=== PATIENT | male | born 1965 | race Caucasian/White ===

== ENCOUNTER 2016-06-24 06:12 | Inpatient (IN) | payer MEDICAID ==
[~2016-06-24] VITALS: Ht 177.8 cm; Wt 68.6 kg
[~2016-06-24 06:12] MED LIST: CYCL1TAB29 PO; GABA400C5 PO; HYDR-3533 PO; LISI10TA3 PO; NICO14DI T-DERMAL
[2016-06-24] MEDS ORDERED: THROMBIN (TOPICAL) 5,000 UNIT VIAL ONE (06:46)
[2016-06-24] MEDS ORDERED: GELFOAM SIZE 100 ONE (06:46)
[2016-06-24] MEDS ORDERED: LIDOCAINE 1%/EPINEPHrine 1:100,000 SOLN 30 ML VIAL ONE (06:46)
[2016-06-24] MEDS ORDERED: GENTAMICIN SULFATE 80 MG/2 ML VIAL ONE (06:48)
[2016-06-24] MEDS ORDERED: BUPR150CR PO (07:12)
[2016-06-24] MEDS ORDERED: CLINDAMYCIN PHOS 600 MG/4 ML VIAL ONE (07:14)
[2016-06-24] MEDS ORDERED: SODIUM CHLORIDE 0.9% INJ 100 ML ONE (07:14)
[2016-06-24] MEDS ORDERED: LACTATED RINGER'S 1000 ML INJ 1,000 ML ONE (07:14)
[2016-06-24 07:15] VITALS: BP 159/96; PULSE 102; RESP 18; TEMP 99.5; O2SAT 98
[2016-06-24] MEDS ORDERED: FAMOTIDINE 20 MG/2 ML VIAL ONE (08:16)
[2016-06-24] MEDS ORDERED: MIDAZOLAM HCL 2 MG/2 ML VIAL ONE ×2 (08:16→13:37)
[2016-06-24] MEDS ORDERED: SUFentanil INJ 250 MCG/5 ML AMP ONE (08:21)
[2016-06-24] MEDS ORDERED: PROPOFOL 200 MG/20 ML AMP IV ONE (08:49)
[2016-06-24] MEDS ORDERED: ONDANSETRON HCL 4 MG/2 ML VIAL IV PUSH ONE (08:49)
[2016-06-24] MEDS ORDERED: LACTATED RINGER'S 1000 ML INJ 2,000 ML IV ONE (08:49)
[2016-06-24] MEDS ORDERED: PHENYLEPH/NS 1000 MCG/10 ML SYR IV ONE (08:49)
[2016-06-24] MEDS ORDERED: DO NOT ADM ANY ANTICOAGULANT DRUGS XX PRN (13:31)
[2016-06-24] MEDS ORDERED: *morphine SULFATE 8 MG/ML PERIprocedure ONLY ONE ×3 (13:35→15:45)
[2016-06-24] MEDS ORDERED: *LABETALOL HCL 100 MG/20 ML VIAL PERIprocedural Use ONLY ONE (13:35)
--- NOTE | 2016-06-24 13:53 | RADRPT ---
EXAM DATE/TIME: 06/24/2016 10:30 [facility] COMPARISON: No previous studies available for comparison. INDICATIONS : Herniated disk, stenosis, anterior cervical fusion. MEDICAL HISTORY : None. SURGICAL HISTORY : None. ENCOUNTER: Initial ACUITY: 1 day PAIN SCORE: 0/10 LOCATION: Cervical spine FINDINGS: Plate with screws is seen bridging the C4-C6. Alignment is anatomic. CONCLUSION: Anatomic alignment. Brannon Martinez MD FACR on June 24, 2016 at 13:32 Board Certified Radiologist. This report was verified electronically.
--- NOTE | 2016-06-24 14:22 | PD.OP ---
Operative Report Date of Surgery: Jun 24, 2016 Preoperative Diagnosis: (1) Cervical spinal stenosis (2) Cervical disc disease with myelopathy Cervical spondylosis and degenerative disc disease Cervical stenosis severe at C5 6 and moderately severe C67 levels Severe cervical myelopathy Postoperative Diagnosis: (1) Cervical spinal stenosis (2) Cervical disc disease with myelopathy Cervical spondylosis and degenerative disc disease Cervical stenosis severe at C5 6 and moderately severe C67 levels Severe cervical myelopathy Procedure: C5 6 and C6 7 anterior cervical discectomy, bilateral foraminotomies, resection posterior aspect as complex-microtechnique C5 6 and C6 7 anterior cervical interbody fusion, composite allograft bone C5-C7 anterior cervical instrumentation Anesthesia: Gen. endotracheal Surgeon: Tremaine Ugarte Video Manager(s): Mehul Foley Operation and Findings: Findings: Severe C5 6 and moderate C6 7 posterior osteophytic disc complex. Severe calcification of the annulus and posterior longitudinal ligament at the C5 6 level with significant erosion of the dura at the central to left C 5 6 level. Severe adhesions of the posterior longitudinal ligament and annular complex to the dura at the left C5 6 level. Procedure in detail: The patient was brought into the operating room and positioned in supine position on the 3080 table with the head and neck in neutral position. Wasserman catheter was placed. Lines were established by Anesthesia. Gen. endotracheal anesthesia was induced without difficulty, taking care not to significantly flex or extend the patient's neck during intubation and positioning. Leads for intraoperative neuro monitoring were placed and a baseline study obtained. All extremities were appropriately padded. The neck and upper chest were shaved with clippers and sterilely prepped and draped. Appropriate time-out procedure was performed with all personnel present and in agreement 1% Xylocaine with epinephrine was used for local infiltration over the incision site which was made transversely at the left C6 level and carried sharply down through the platysma muscle. The exposure was continued medial to the sternocleidomastoid muscle and carotid artery, and lateral to the trachea and esophagus. The prevertebral fascia was elevated away from the anterior longitudinal ligament with a Kitner sponge. The longus coli muscle on each side was elevated with the [place] elevator. The self-retaining retractor was placed with the blades beneath the longus coli muscle on each side. The appropriate levels were confirmed with intraoperative C-arm and preoperative imaging studies. The microscope was brought into place and used for the remainder of the procedure including the closure. The 14 mm distraction pins were used as needed for gentle distraction during the procedure. The procedure was performed sequentially at the C5 6 followed by the C6 7 levels. At each level the anterior osteophyte was resected with the Leksell rongeur. The disc and annulus was incised with a 15 blade knife and discectomy performed with pituitary biopsy forceps and straight and angled curettes. The TPS drill with the 5 mm barrel bur was used to decorticate the endplates and removed the majority of the osteophyte along the anterior spinal canal as well as the right and left uncovertebral joint. The posterior vertebral margins of at least 5 mm above and below the interspace at each level were resected with the TPS drill with a 5 mm barrel bur followed by the 4 mm amaya bur. The thin ligament dissector was used to free up the posterior annulus and ligament from the vertebral body margin. The remainder of the resection of the posterior annulus and ligament as well as the posterior osteophyte and bilateral uncovertebral joint was performed with the 2 and 3 mm thin footplate Kerrison rongeurs. At the C5 6 level, there was severe calcification of the annulus and posterior longitudinal ligament. This tissue was very adherent to the thecal sac at the central to left C5 6 level, with an area of erosion into the dura. Extreme care was taken to lift this calcified tissue away from the anterior aspect of the spinal cord. No spinal fluid leakage was encountered. Despite a wide decompression of the anterior canal and bilateral neural foramen at the C5 6 level, the cord still appeared adherent to or immediately beneath the dura at the C5 6 level. The small defect in the dura was covered with a thin piece of Gelfoam and thrombin. No cerebrospinal fluid leakage was encountered. At the C6 7 level, the posterior osseous disc complex was also very extensive, but there was no adhesion noted and no calcification of the posterior longitudinal ligament. Significant posterior osteophyte was encountered and extensively removed. The posterior vertebral bodies were undercut with the Kerrison rongeur and the TPS drill with the 4 mm amaya bur as needed to fully decompress the anterior spinal canal. The appropriate size V G2 bone graft was then placed at each level with a good fit of the graft. The blunt nerve hook was used to probe beneath the bone graft to ensure that there was no impingement on the thecal sac or exiting nerve roots. The appropriate size Precision anterior cervical plate was then chosen and the bone screws were placed with the 14 mm fixed screws at the caudal most level and the 14 mm variable screws at the cephalad level of the decompression. The screws were firmly secured and the locking cams engaged. The entire construct was checked with intraoperative C-arm and felt to be satisfactory. The 10 Polish drain was brought out through a small incision in the left lower neck and secured to the skin with nylon suture and attached to sterile suction. The closure was performed with 3-0 Vicryl running for the platysma and interrupted for the subcutaneous closure, with 4-0 Vicryl running for the subcuticular closure. A dressing of sterile Mastisol, Steri-Strips, and Primapore dressing was placed. The patient was placed into a cervical collar, and taken to recovery room in stable condition. All counts were correct at the end of the case. Estimated blood loss was 100 cc No specimen was sent to pathology. Intraoperative neuro monitoring during the procedure at baseline revealed no motor responses bilateral. During the procedure, left upper extremity SSEP was diminished greater than 50% with increased latency, but by the end of procedure have returned to baseline or better. Right upper extremity SSEP remained stable during the procedure. At the end of procedure, motor responses were present in the left proximal upper extremity and left foot as well as some right biceps, all improved versus baseline. Tremaine Ugarte MD Jun 24, 2016 14:22
[2016-06-24] MEDS ORDERED: SODIUM CHLORIDE 0.9% FLUSH 5 ML FLUSH IVF PRN (14:30)
[2016-06-24] MEDS ORDERED: NALOXONE HCL 0.4 MG/ML AMP IV PRN (14:30)
[2016-06-24] MEDS ORDERED: ONDANSETRON HCL 4 MG/2 ML VIAL IV PRN (14:30)
[2016-06-24] MEDS ORDERED: PROMETHAZINE INJ 25 MG/ML VIAL IM PRN (14:30)
[2016-06-24] MEDS ORDERED: HYDROmorphone HCL PF 1 MG/ML VIAL IV PRN (14:30)
[2016-06-24] MEDS ORDERED: ACETAMINOPHEN/HYDROcodone 325 MG/5 MG TAB PO PRN (14:30)
[2016-06-24] MEDS: D5-1/2 NS + KCL 20 MEQ INJ 1,000 ML IV SCH (15:10)
[2016-06-24] MEDS ORDERED: *HYDROmorphone PF 1 MG VIAL PERIprocedural Use ONLY ONE (15:52)
[2016-06-24] MEDS: HYDROmorphone HCL PF 1 MG/ML VIAL IV PRN ×2 (16:55→20:44)
[2016-06-24 17:10] VITALS: BP 171/96; PULSE 102; RESP 20; TEMP 99.2; O2SAT 99
[2016-06-24] MEDS: GABAPENTIN 300 MG CAP PO SCH (18:00)
[2016-06-24] MEDS: CYCLOBENZAPRINE HCL 10 MG TAB PO PRN (20:57)
[2016-06-24] MEDS: LISINOPRIL 10 MG TAB PO SCH (20:58)
[2016-06-24] MEDS: DOCUSATE SODIUM 100 MG CAP PO SCH (20:58)
[2016-06-24] MEDS: SODIUM CHLORIDE 0.9% FLUSH 5 ML FLUSH IVF SCH (20:58)
[2016-06-24 21:04] VITALS: BP 158/93; PULSE 102; RESP 24; TEMP 98.2; O2SAT 100
[2016-06-25] VITALS (7 sets, daily range): BP systolic 125–173; BP diastolic 58–98; PULSE 62–95; RESP 18–22; TEMP 96.7–99.3; O2SAT 97–100
[2016-06-25] MEDS: HYDROmorphone HCL PF 1 MG/ML VIAL IV PRN ×7 (00:09→21:26)
[2016-06-25] MEDS: oxyCODONE/ACETAMINOPHEN 10 MG/325 MG TAB PO PRN ×4 (00:13→19:59)
[2016-06-25] MEDS: D5-1/2 NS + KCL 20 MEQ INJ 1,000 ML IV SCH ×2 (00:14→12:00)
[2016-06-25 08:47] LABS: AUTOMATED NEUTROPHIL # 6.8 TH/MM3 (1.8-7.7); BASOPHIL % 0.5 % (0.0-2.0); EOSINOPHIL % 0.4 % (0.0-4.0); HEMATOCRIT 37.7 % (39.0-51.0); HEMO FLAGS DIFF FINAL; LYMPH % 19.6 % (9.0-44.0); LYMPHOCYTE # 1.9 TH/MM3 (1.0-4.8); MEAN CELL VOLUME 94.2 FL (80.0-100.0); MEAN CORPUSCULAR HEMOGLOBIN 32.5 PG (27.0-34.0); MEAN CORPUSCULAR HGB CONC 34.5 % (32.0-36.0); MONO % 11.5 % (0.0-8.0); PLATELET COUNT 244 TH/MM3 (150-450); RED CELL DISTRIBUTION WIDTH 13.2 % (11.6-17.2); WHITE BLOOD COUNT 9.9 TH/MM3 (4.0-11.0)
[2016-06-25] MEDS: DOCUSATE SODIUM 100 MG CAP PO SCH ×2 (08:54→21:15)
[2016-06-25] MEDS: buPROPion HCL 150 MG SUSTAINED RELEASE TAB PO SCH (08:54)
[2016-06-25] MEDS: GABAPENTIN 300 MG CAP PO SCH ×3 (08:55→18:00)
[2016-06-25] MEDS: CYCLOBENZAPRINE HCL 10 MG TAB PO PRN (08:55)
[2016-06-25] MEDS: PANTOPRAZOLE SOD 40 MG DELAYED RELEASE TAB PO SCH (08:55)
[2016-06-25] MEDS ORDERED: NICOTINE 14 MG/24 HR PATCH T-DERMAL SCH (09:00)
[2016-06-25] MEDS: REMOVE OLD NICOTINE PATCH TD SCH (09:00)
[2016-06-25] MEDS: SODIUM CHLORIDE 0.9% FLUSH 5 ML FLUSH IVF SCH ×2 (09:02→21:16)
[2016-06-25 09:10] LABS: BICARBONATE 26.4 MEQ/L (21.0-32.0); POTASSIUM 3.7 MEQ/L (3.5-5.1)
[2016-06-25] MEDS ORDERED: INFLUENZA VIRUS VACCINE (QUADRIVALENT) 0.5 ML SYR IM ONE (10:00)
[2016-06-25] MEDS ORDERED: PNEUMOCOCCAL POLYVALENT INJ 25 MCG/0.5 ML SYR IM ONE (10:00)
[2016-06-25] MEDS ORDERED: PHENOL 1.4% SOLN 180 ML BTL PO PRN (13:15)
[2016-06-25] MEDS: BENZOCAINE 6 MG/MENTHOL 10 MG LOZENGE BUCCAL PRN ×2 (15:01→20:03)
--- NOTE | 2016-06-25 20:00 | HHI.NSPN ---
History Chief Complaint: throat pain, neck pain Interval History 50-year-old male with severe cervical stenosis, cervical myelopathy, significant increased signal intensity within the cord on preoperative MRI. 06/24/16: C5 6 and C6 7 ACDF 06/25/16: Moderate drain output. Significant throat, neck pain. Clear liquids per speech therapy. Gait remains unsteady, unchanged versus preop System Review Comments No complaint of any radiating pain in the upper or lower extremities. No complaint of any new weakness or numbness upper or lower extremities versus preop Exam Results Vital Signs Date Time Temp Pulse Resp B/P Pulse Ox O2 Delivery O2 Flow Rate FiO2 06/25/16 17:31 99.3 77 20 160/95 98 06/25/16 11:50 21 06/25/16 04:00 Nasal Cannula 2.00 Intake and Output 06/24/16 06/24/16 06/25/16 08:00 16:00 00:00 Intake Total 1700 ml 580 ml Output Total 400 ml 200 ml Balance 1300 ml 380 ml Physical Examination Awake and alert Respirations clear, nonlabored No cough Cardiac: Pulse regular Cervical collar in place Anterior neck dressing dry and intact Moderate neck drain output Mild to moderate tenderness posterior cervical paraspinous musculature and medial bilateral trapezius Sensation intact light touch upper and lower extremities Strength mostly 4-5/5 all major flexion and extension groups throughout the upper and lower extremities except for 3/5 bilateral hand intrinsics, stable versus preop Moderate bilateral Sai's response 3 beats left, absent right ankle clonus Medical Decision Making Impression and Plan Impression: 1. Stable neurologic exam and symptoms postoperatively compared to preoperative. 2. Significant postoperative throat and posterior neck pain. Plan: Findings discussed at length with the patient. Muscle relaxant and medicated lozenges added. PT and speech therapy notes reviewed. Continue clear liquids for now Continue physical therapy. Possible inpatient rehabilitation. Plan to Discontinue drain in a.brennan. Tremaine Ugarte MD Jun 25, 2016 20:00
[2016-06-25] MEDS: LISINOPRIL 10 MG TAB PO SCH (21:15)
[2016-06-25] MEDS: ZOLPIDEM TARTRATE 10 MG TAB PO PRN (21:25)
[2016-06-26] VITALS (8 sets, daily range): BP systolic 133–156; BP diastolic 88–95; PULSE 85–115; RESP 18–22; TEMP 98.2–99.5; O2SAT 96–99
[2016-06-26] MEDS: HYDROmorphone HCL PF 1 MG/ML VIAL IV PRN ×3 (00:45→07:25)
[2016-06-26] MEDS: buPROPion HCL 150 MG SUSTAINED RELEASE TAB PO SCH (08:57)
[2016-06-26] MEDS: GABAPENTIN 300 MG CAP PO SCH ×3 (08:57→17:35)
[2016-06-26] MEDS: PANTOPRAZOLE SOD 40 MG DELAYED RELEASE TAB PO SCH (08:57)
[2016-06-26] MEDS: SODIUM CHLORIDE 0.9% FLUSH 5 ML FLUSH IVF SCH ×2 (08:58→20:36)
[2016-06-26] MEDS: DOCUSATE SODIUM 100 MG CAP PO SCH ×2 (08:58→20:37)
[2016-06-26] MEDS: REMOVE OLD NICOTINE PATCH TD SCH (08:59)
[2016-06-26] MEDS: NICOTINE 14 MG/24 HR PATCH T-DERMAL SCH (08:59)
[2016-06-26] MEDS: MORPHINE SULFATE 4 MG/ML INJ IV PRN ×3 (09:00→17:32)
--- NOTE | 2016-06-26 09:04 | HHI.NSPN ---
History Chief Complaint: throat pain, neck pain Interval History 50-year-old male with severe cervical stenosis, cervical myelopathy, significant increased signal intensity within the cord on preoperative MRI. 06/24/16: C5 6 and C6 7 ACDF 06/25/16: Moderate drain output. Significant throat, neck pain. Clear liquids per speech therapy. Gait remains unsteady, unchanged versus preop 06/26/16: Neck and throat pain a little better. Remains on liquids. Continuing physical therapy System Review Comments Right lateral arm tenderness. No radiating pain in the upper extremities or lower extremities. Gait stable compared to preoperative. Exam Results Vital Signs Date Time Temp Pulse Resp B/P Pulse Ox O2 Delivery O2 Flow Rate FiO2 06/26/16 08:37 99.1 107 20 133/88 96 06/25/16 19:00 Room Air 06/25/16 11:50 21 06/25/16 04:00 2.00 Intake and Output 06/25/16 06/25/16 06/26/16 08:00 16:00 00:00 Intake Total 923 ml 900 ml Output Total 3530 ml 1300 ml Balance -2607 ml -1300 ml 900 ml Physical Examination Awake and alert Respirations clear, nonlabored No cough Cardiac: Pulse regular Cervical collar in place Anterior neck dressing dry and intact Mild to moderate tenderness posterior cervical paraspinous musculature and medial bilateral trapezius Sensation intact light touch upper and lower extremities Strength mostly 4-5/5 all major flexion and extension groups throughout the upper and lower extremities except for 4/5 bilateral hand intrinsics, stable versus preop Moderate bilateral Sai's response Medical Decision Making Impression and Plan Impression: 1. Stable neurologic exam and symptoms postoperatively compared to preoperative. 2. Significant postoperative throat and posterior neck pain-improving slowly Plan: Findings discussed at length with the patient. Muscle relaxant and medicated lozenges added. PT and speech therapy continue Continue clear liquids for now Possible inpatient rehabilitation per physical therapy recommendations. Discussed with patient Plan to Discontinue drain today Remains quite painful-add temporary MS Contin for pain control Tremaine Ugarte MD Jun 26, 2016 09:04
[2016-06-26] MEDS: DEXAMETHASONE 1 MG/1 ML ORAL SYRINGE PO SCH ×2 (10:00→20:37)
[2016-06-26] MEDS: MORPHINE SULFATE 15 MG CONTROLLED RELEASE TAB PO SCH ×2 (11:29→20:37)
[2016-06-26] MEDS: LISINOPRIL 10 MG TAB PO SCH (20:37)
[2016-06-26] MEDS: ZOLPIDEM TARTRATE 10 MG TAB PO PRN (20:41)
[2016-06-27] VITALS (7 sets, daily range): BP systolic 119–166; BP diastolic 74–94; PULSE 86–115; RESP 18–20; TEMP 97–98.3; O2SAT 97–100
[2016-06-27] MEDS: HYDROmorphone HCL PF 1 MG/ML VIAL IV PRN ×4 (03:25→16:42)
[2016-06-27] MEDS: BENZOCAINE 6 MG/MENTHOL 10 MG LOZENGE BUCCAL PRN (08:28)
[2016-06-27] MEDS: NICOTINE 14 MG/24 HR PATCH T-DERMAL SCH (08:29)
[2016-06-27] MEDS: CYCLOBENZAPRINE HCL 10 MG TAB PO PRN ×2 (08:29→16:41)
[2016-06-27] MEDS: REMOVE OLD NICOTINE PATCH TD SCH (08:29)
[2016-06-27] MEDS: PANTOPRAZOLE SOD 40 MG DELAYED RELEASE TAB PO SCH (08:29)
[2016-06-27] MEDS: buPROPion HCL 150 MG SUSTAINED RELEASE TAB PO SCH (08:29)
[2016-06-27] MEDS: GABAPENTIN 300 MG CAP PO SCH ×3 (08:30→17:17)
[2016-06-27] MEDS: MORPHINE SULFATE 15 MG CONTROLLED RELEASE TAB PO SCH ×2 (08:30→21:22)
[2016-06-27] MEDS: SODIUM CHLORIDE 0.9% FLUSH 5 ML FLUSH IVF SCH ×2 (08:31→21:22)
[2016-06-27] MEDS: DEXAMETHASONE 1 MG/1 ML ORAL SYRINGE PO SCH ×2 (08:31→21:22)
[2016-06-27] MEDS: DOCUSATE SODIUM 100 MG CAP PO SCH ×2 (08:31→21:22)
[2016-06-27] MEDS ORDERED: CYCL1TAB29 PO (20:45)
[2016-06-27] MEDS ORDERED: DILA2TAB2 PO (20:45)
--- NOTE | 2016-06-27 20:46 | HHI.DCPOC ---
Discharge Care Plan Diagnosis: (1) Cervical spinal stenosis (2) Cervical disc disease with myelopathy Your Health Problems Are: Difficulty with ADL Incision/Drains Exercise Tolerance Loss of Movements Chronic Pain Goals to Promote Your Health * To prevent worsening of your condition and complications * To maintain your health at the optimal level Directions to Meet Your Goals Take your medications as prescribed Follow your dietary instruction Follow activity as directed Keep your appointments as scheduled Take your immunizations and boosters as scheduled If your symptoms worsen call your PCP, if no PCP go to Urgent Care Center or Emergency Room Smoking is Dangerous to Your Health. Avoid second hand smoke Call the 24-hour hour crisis hotline for domestic abuse at Tremaine Ugarte MD Jun 27, 2016 20:46
--- NOTE | 2016-06-27 20:49 | HHI.DS ---
Discharge Summary Admission Date Jun 25, 2016 at 17:16 Discharge Date: Jun 27, 2016 Admitting Diagnosis Cervical stenosis Cervical myelopathy (1) Cervical spinal stenosis Diagnosis: Secondary ICD Code: M48.02 (2) Cervical disc disease with myelopathy Diagnosis: Principal ICD Code: M50.00 Procedures 06/24/16: C5 6 and C6 7 ACDF CBC/BMP: 06/25/16 0723 06/25/16 0723 Significant Findings Laboratory Tests Test 06/25/16 07:23 Red Blood Count 4.00 MIL/MM3 (4.50-5.90) Hematocrit 37.7 % (39.0-51.0) Monocytes (%) (Auto) 11.5 % (0.0-8.0) Monocytes # (Auto) 1.1 TH/MM3 (0-0.9) Random Glucose 113 MG/DL (74-106) Hospital Course Patient admitted for the above-noted procedure, performed without complication. Patient with significant throat pain and moderate dysphagia postoperative. Improving with medication and speech therapy. No change in neurologic exam postoperative At time of discharge, throat pain improving and tolerating liquids well. Speech therapy following patient throughout the hospitalization. Pt Condition on Discharge: Stable Discharge Disposition: Discharge Home Discharge Instructions DIET: Follow Instructions for: Full Liquid Diet ACTIVITIES You can perform: Weight Bearing As Esa Activities to Avoid: Lifting/Bending, Strenuous Activity Follow up Referrals: Speech Therapy New Orders: X-RAY SHUNT SERIES New Medications: Hydromorphone (Dilaudid) 2 Mg Tab 2 MG PO Q6H PRN Pain Management #60 Ref 0 TAB Continued Medications: Bupropion HCl ER 12 HR (Wellbutrin SR 12 HR) 150 Mg Tab 300 MG PO DAILY Control Depression Ref 0 TAB Cyclobenzaprine (Flexeril) 10 Mg Tab 10 MG PO TID Muscle Spasm #90 Ref 0 TAB (This prescription has been renewed) Gabapentin (Gabapentin) 400 Mg Cap 400 CAP PO TID #30 Ref 0 CAP Hydrocodone-Acetaminophen (Lortab) 5-325 Mg Tab 1-2 TAB PO Q8HR PRN PAIN Ref 0 TAB Lisinopril (Lisinopril) 10 Mg Tab 10 MG PO HS #30 Ref 0 TAB Nicotine Patch (Nicotine Patch) 14 Mg/24 Hr Patch 14 MG T-DERMAL DAILY Smoking Cessation #30 Ref 0 PATCH Tremaine Ugarte MD Jun 27, 2016 20:49
--- NOTE | 2016-06-27 20:56 | HHI.NSPN ---
History Chief Complaint: throat pain, neck pain Interval History 50-year-old male with severe cervical stenosis, cervical myelopathy, significant increased signal intensity within the cord on preoperative MRI. 06/24/16: C5 6 and C6 7 ACDF 06/25/16: Moderate drain output. Significant throat, neck pain. Clear liquids per speech therapy. Gait remains unsteady, unchanged versus preop 06/26/16: Neck and throat pain a little better. Remains on liquids. Continuing physical therapy 06/27/16: Remains mostly on liquids, however he feels that he is swallowing better and clearing his throat better. No shortness of breath. No fever or chills. Exam Results Vital Signs Date Time Temp Pulse Resp B/P Pulse Ox O2 Delivery O2 Flow Rate FiO2 06/27/16 17:16 18 06/27/16 15:52 97.2 108 119/86 99 06/26/16 20:00 Room Air 06/26/16 18:37 21 06/25/16 04:00 2.00 Intake and Output 06/26/16 06/26/16 06/26/16 07:59 15:59 23:59 Intake Total 240 ml 480 ml 240 ml Output Total 400 ml 250 ml Balance 240 ml 80 ml -10 ml Physical Examination Awake and alert Respirations clear, nonlabored No cough Cardiac: Pulse regular Cervical collar in place Anterior neck dressing dry and intact. Neck soft and nontender Mild tenderness posterior cervical paraspinous musculature and medial bilateral trapezius Sensation intact light touch upper and lower extremities Strength mostly 4-5/5 all major flexion and extension groups throughout the upper and lower extremities except for 4/5 bilateral hand intrinsics, stable versus preop Moderate bilateral Sai's response Sustained left and 4-5 beats right ankle clonus Medical Decision Making Impression and Plan Impression: 1. Stable neurologic exam and symptoms postoperatively compared to preoperative. His gait may be improving a little bit. 2. Significant postoperative throat and posterior neck pain-improving slowly Plan: Findings discussed at length with the patient. His gait is improving. He ambulated 500 feet today is minimal assist. Continue clear liquids for now per speech therapy Plan discharge home in the a.m. Wound care, activity precautions, exercises, and signs and symptoms to watch for fully discussed. Still with moderate dysphagia. Outpatient speech therapy for dysphagia if available. Tremaine Ugarte MD Jun 27, 2016 20:56
[2016-06-27] MEDS: LISINOPRIL 10 MG TAB PO SCH (21:22)
[2016-06-27] MEDS: ZOLPIDEM TARTRATE 10 MG TAB PO PRN (21:27)
[2016-06-28] VITALS: BP 166/74; PULSE 86; RESP 18; TEMP 97.6; O2SAT 100
[2016-06-28] MEDS: CYCLOBENZAPRINE HCL 10 MG TAB PO PRN (01:34)
[2016-06-28] MEDS: HYDROmorphone HCL PF 1 MG/ML VIAL IV PRN (01:35)
[2016-06-28 04:00] VITALS: BP 105/72; PULSE 87; RESP 18; TEMP 97.4; O2SAT 99
[2016-06-28 08:52] VITALS: BP 112/75; PULSE 81; RESP 20; TEMP 97; O2SAT 100
[2016-06-28] MEDS: REMOVE OLD NICOTINE PATCH TD SCH (09:00)
[2016-06-28] MEDS: PANTOPRAZOLE SOD 40 MG DELAYED RELEASE TAB PO SCH (09:26)
[2016-06-28] MEDS: buPROPion HCL 150 MG SUSTAINED RELEASE TAB PO SCH (09:26)
[2016-06-28] MEDS: MORPHINE SULFATE 15 MG CONTROLLED RELEASE TAB PO SCH (09:26)
[2016-06-28] MEDS: DOCUSATE SODIUM 100 MG CAP PO SCH (09:26)
[2016-06-28] MEDS: GABAPENTIN 300 MG CAP PO SCH ×2 (09:26→14:02)
[2016-06-28] MEDS: NICOTINE 14 MG/24 HR PATCH T-DERMAL SCH (09:27)
[2016-06-28] MEDS: DEXAMETHASONE 1 MG/1 ML ORAL SYRINGE PO SCH (09:27)
[2016-06-28] MEDS: SODIUM CHLORIDE 0.9% FLUSH 5 ML FLUSH IVF SCH (09:32)
--- NOTE | 2016-06-28 11:18 | HHI.NSPN ---
History Chief Complaint: neck pain controlled. Interval History 06/28/16: Pt awake and alert. Mild incisional pain. No radiculopathy in UEs. No paresthesias in UEs. Pt ambulating to bathroom independently. He states he frequently gets constipated from pain medication but manages this on his own at home. No abdominal pain. No distention. Review of Systems General: Negative for: fever, chills, insomnia Respiratory: Negative for: shortness of breath, cough, sputum Cardiovascular: Negative for: chest pain Gastrointestinal: Positive for: constipation, Negative for: nausea, vomitting , diarrhea Exam Results Vital Signs Date Time Temp Pulse Resp B/P Pulse Ox O2 Delivery O2 Flow Rate FiO2 06/28/16 08:52 97.0 81 20 112/75 100 06/26/16 20:00 Room Air 06/26/16 18:37 21 06/25/16 04:00 2.00 Intake and Output 06/27/16 06/27/16 06/28/16 08:00 16:00 00:00 Intake Total 480 ml Output Total 400 ml Balance -400 ml 480 ml Physical Examination Resp: CTA bilaterally Heart: NSR no murmurs Abd: Soft positive bs. No abdominal distention. Nontender. Skin: Incision clean and dry. Steristrips intact. No signs of infection Muscle: mostly 4-5/5 all major flexion and extension groups throughout the upper and lower extremities except for 4/5 bilateral hand intrinsics, stable versus preop Neuro: Pt awake and alert. Follows commands well. Speech clear and appropriate. Lab, Micro, Other Results 06/27/16 06/27/16 06/28/16 15:00 23:00 07:00 Intake Total 480 ml Balance 480 ml Intake Oral 480 ml IV Total 0 ml # Voids 7 # Bowel Movements 0 Medical Decision Making Impression and Plan A: 50 y/o M s/p ACF for severe myelopathy P: Discharge pt home. Pt requesting discharge home. Keep incision clean and dry. Stools softeners and prn laxatives. Pt states constipation not unusual for him and manages it at home with prn laxative. Waqas Jasso Jun 28, 2016 11:18
[2016-06-28 12:47] VITALS: BP 138/76; PULSE 93; RESP 22; TEMP 96.9; O2SAT 99
[2016-06-28 13:03] VITALS: O2SAT 98
[2016-06-28] MEDS ORDERED: GETGO ROLLING W1 MI1 (14:43)
[2016-07-05] MEDS ORDERED: FLUT50SP (13:50)
[2016-07-05] MEDS ORDERED: ALBUAER3 (13:50)
[2016-07-05] MEDS ORDERED: MELO-1 (13:50)
[2016-07-05] MEDS ORDERED: GUAI1TAB27 (13:50)
[2016-07-05] MEDS ORDERED: NICO1DIS2 (13:50)
[2016-07-12] MEDS ORDERED: HYDR-3583 PO (17:48)
[2016-07-26] MEDS ORDERED: CYCL1TAB29 PO (11:56)
[2016-07-31] MEDS ORDERED: HYDR-3583 PO (09:57)
[2016-08-26] MEDS ORDERED: CYCL1TAB29 PO (15:40)
[2016-08-27] MEDS ORDERED: HYDR-3583 PO (16:23)
[2016-09-18] MEDS ORDERED: HYDR-3583 PO (15:20)
[2016-10-18] MEDS ORDERED: HYDR-3583 PO (15:09)
== END 2016-06-28 15:00 | disposition home or self-care (01) | DRG 472 ==
LOC: HSDC 06:12 → EDSTATUS 08:30 → HSDI 14:34 → UNDOADMIN 14:34 → N05B 16:45 → HSDI 16:45 → OBSVTOIN 06-25 17:16
PROVIDERS: ADMIT Neurological Surgery; ATTEND Neurological Surgery
PROC: 0RT30ZZ Resection of Cervical Vertebral Disc, Open Approach (ICD-10-PCS; 2016-06-24)
PROC: 4A11X4G Monitoring of Peripheral Nervous Electrical Activity, Intraoperative, External Approach (ICD-10-PCS; 2016-06-24)
PROC: 0RG20A0 Fusion of 2 or more Cervical Vertebral Joints with Interbody Fusion Device, Anterior Approach, Anterior Column, Open Approach (ICD-10-PCS; principal; 2016-06-24 08:28)
DX: M50.022 Cervical disc disorder at C5-C6 level with myelopathy (principal); M47.12 Other spondylosis with myelopathy, cervical region; G96.12 Meningeal adhesions (cerebral) (spinal); M48.02 Spinal stenosis, cervical region; M50.023 Cervical disc disorder at C6-C7 level with myelopathy; M25.78 Osteophyte, vertebrae; I10 Essential (primary) hypertension; G89.18 Other acute postprocedural pain; R13.10 Dysphagia, unspecified; K59.03 Drug induced constipation; T40.605A Adverse effect of unspecified narcotics, initial encounter; R07.0 Pain in throat; F17.210 Nicotine dependence, cigarettes, uncomplicated; Z23 Encounter for immunization
CPT/HCPCS: 72020; 76000; 80048; 85025; 90471; 90472; 90686; 90732; 94150; C1713; G0008; G0009; G8987-GO; G8987-GP; G8988-GO; G8988-GP; J1170; J1580; J2250; J2270; J2370; J2405; J3010; J3480; J7120; J8540; L0150; L0172; Q2038

== ENCOUNTER 2016-10-02 07:01 | Day surgery (SDC) | payer MEDICAID ==
[~2016-10-02] VITALS: Ht 177.8 cm; Wt 65.9 kg
[~2016-10-02 07:01] MED LIST changes: +ALBUAER3; +BUPR150CR PO; +FLUT50SP; -HYDR-3533 PO; +HYDR-3583 PO
[2016-10-02 07:30] VITALS: BP 146/94; PULSE 93; RESP 20; TEMP 99; O2SAT 97
[2016-10-02 08:01] LABS: AUTOMATED NEUTROPHIL # 2.4 TH/MM3 (1.8-7.7); BASOPHIL # 0.1 TH/MM3 (0-0.2); BASOPHIL % 1.8 % (0.0-2.0); EOSINOPHIL # 0.2 TH/MM3 (0-0.4); EOSINOPHIL % 4.6 % (0.0-4.0); HEMATOCRIT 40.2 % (39.0-51.0); HEMO FLAGS DIFF FINAL; LYMPH % 39.4 % (9.0-44.0); LYMPHOCYTE # 2.1 TH/MM3 (1.0-4.8); MEAN CELL VOLUME 96.6 FL (80.0-100.0); MEAN CORPUSCULAR HGB CONC 34.1 % (32.0-36.0); NEUT % 45.2 % (16.0-70.0); PLATELET COUNT 258 TH/MM3 (150-450); RED BLOOD COUNT 4.16 MIL/MM3 (4.50-5.90); RED CELL DISTRIBUTION WIDTH 14.1 % (11.6-17.2); WHITE BLOOD COUNT 5.3 TH/MM3 (4.0-11.0)
[2016-10-02 08:08] LABS: APTT (PATIENT) 28.6 SEC (24.3-30.1); INTERNATIONAL NORMALIZED RATIO 0.9 RATIO; PROTHROMBIN TIME - PATIENT 10.3 SEC (9.8-11.6)
[2016-10-02 08:15] LABS: BICARBONATE 25.4 MEQ/L (21.0-32.0); POTASSIUM 4.2 MEQ/L (3.5-5.1)
[2016-10-02] MEDS ORDERED: DIAZEPAM 5 MG TAB PO SCH (08:30)
[2016-10-02] MEDS ORDERED: LACTATED RINGER'S 1000 ML INJ 1,000 ML IV SCH (08:30)
[2016-10-02] MEDS ORDERED: NICOTINE 14 MG/24 HR PATCH T-DERMAL SCH (09:00)
[2016-10-02] MEDS ORDERED: MORPHINE SULFATE 4 MG/ML INJ IM PRN (09:15)
[2016-10-02] MEDS ORDERED: ACETAMINOPHEN 325 MG TAB PO PRN (09:15)
[2016-10-02] MEDS ORDERED: ONDANSETRON HCL 4 MG/2 ML VIAL IV PRN (09:15)
[2016-10-02] MEDS ORDERED: oxyCODONE/ACETAMINOPHEN 5 MG/325 MG TAB PO PRN (09:15)
--- NOTE | 2016-10-02 09:20 | PD.RAD ---
Post Procedure Progress Note Pre Procedure Diagnosis: (1) Lumbar spinal stenosis (2) Cervical spinal stenosis (3) Chronic radicular low back pain Post Procedure Diagnosis: (1) Lumbar spinal stenosis (2) Cervical spinal stenosis (3) Chronic radicular low back pain Procedure Date: October 02, 2016 Supervising Radiologist: Rajesh Díaz Proceduralist/Assist: Kali Rodriguez, RT(R), Bri Grewal RT(R)() Anesthesia: Local Plan of Activity Patient to Unit: Other (CT) Patient Condition: Good See PACS Report for procedural detail/treatment Spinal Procedure Myelogram (Complete) L2-L3 Fluid Description: Clear Puncture Time: 09:01 Findings: Apparent stenosis in both the lumbar and cervical superior motion segment. CT to follow Rajesh Díaz MD October 02, 2016 09:20
[2016-10-02] MEDS ORDERED: IOHEXOL 300 MG/ML 50 ML BTL (for RAD DIAG) ONE (09:21)
[2016-10-02 09:45] VITALS: BP 126/76; PULSE 64; RESP 17; TEMP 98.4; O2SAT 97
[2016-10-02] MEDS ORDERED: ACETAMINOPHEN/HYDROcodone 325 MG/10 MG TAB PO ONE (10:00)
--- NOTE | 2016-10-02 10:15 | RADRPT ---
EXAM DATE/TIME: 10/02/2016 09:22 [facility] COMPARISON: No previous studies available for comparison. INDICATIONS : Spinal stenosis RADIATION DOSE: 25.20 CTDIvol (mGy) CT of thecervical spine was performed post myelogram. MEDICAL HISTORY : Hypertension. SURGICAL HISTORY : C-spine surgery. ENCOUNTER: Initial ACUITY: 1 day PAIN SCALE: 0/10 LOCATION: neck TECHNIQUE: Volumetric scanning of the cervical spine was performed. Multiplanar reconstructions in the sagittal, coronal and oblique axial planes were performed. Using automated exposure control and adjustment o f the mA and/or kV according to patient size, radiation dose was kept as low as reasonably achievable to obtain optimal diagnostic quality images. FINDINGS: There is excellent contrast opacification of the cervical subarachnoid spaces following myelographic contrast injection. There has been previous ventral cervical hardware fusion from C5-C7. The alignmen t is anatomic. There is no evidence of fracture or destructive change. Findings at specific interspaces: Skull base to C2-3: Widely patent canal. No evidence of foraminal stenosis. C3-4: Broad left paracentral uncovertebral and lateral endplate disc osteophyte with prominent effacement o f left lateral recess and mild asymmetric foraminal stenosis. Canal is adequate. C4-5: No significant bony or soft tissue canal or foraminal compromise. C5-6: Fused level. Satisfactory Canal. Symmetric mild foraminal narrowing.. C6-7: Fused level. Canal adequate. Mild foraminal narrowing, right worse than left. C7-T1: Widely patent canal and foramina. CONCLUSION: Left paracentral disc osteophyte complex at C3-4 with moderate effacement of the lateral recess. Marcelino Millard MD on October 02, 2016 at 10:05 Board Certified Radiologist. This report was verified electronically.
--- NOTE | 2016-10-02 13:56 | RADRPT ---
EXAM DATE/TIME: 10/02/2016 09:04 [facility] COMPARISON: No previous studies available for comparison. INDICATIONS : Patient is in need of a complete myelogram for evaluation of spinal stenosis. MEDICAL HISTORY : History of HTN, osteoarthritis. SURGICAL HISTORY : History of nack and back surgery, digital repair on left hand. ENCOUNTER: Initial ACUITY: 2 weeks PAIN SCORE: 7/10 LOCATION: lower back LUMBAR PUNCTURE TIME: 0901 hours FLUORO TIME: 1.78 minutes IMAGE SERIES: 4 CONTRAST: 15 cc Omnipaque (iohexol) 300 ACCESS LEVEL: L2-3 PROCEDURE : 1. Fluoroscopic guided lumbar puncture. 2. Instillation of intrathecal contrast. 3. Total spinal axis myelogram. The risks, benefits and alternatives to the procedure were explained and verbal and written consent w as obtained. The site was prepped in sterile fashion. Full sterile technique was used, including ca p, mask, sterile gloves and gown and a large sterile sheet. Hand hygiene and 2% chlorhexidine and/or betadine/alcohol prep was utilized per protocol for cutaneous antisepsis. The skin and subcutaneous tissues were infiltrated with local anesthetic solution. With fluoroscopic guidance the lumbar thecal sac was punctured at level above and a diagnostic quanti ty of contrast is present in the subarachnoid space. Following the lumbar radiographs contrast was r un cephalad and radiographs were obtained of the thoracic spine. Under fluoroscopic guidance contras t was placed in the cervical region and radiographs were obtained of the cervical region. The patient tolerated procedure well and there were no complications. CT scan is to be performed for further evaluation. Lateral images show mild spinal stenosis at L2-3 with more significant, moderate to severe spinal stenosis at L3-4 and L4-5. Anterior fixation at 3 levels in the lower cervical spin e with possible some degree of spinal stenosis at the superior motion segment, C4-C5 and possibly C3- 4. CT to follow. CONCLUSION: Uncomplicated total axis myelogram as above. CT scan is to be performed for further evaluation. Rajesh Díaz MD on October 02, 2016 at 13:50 Board Certified Radiologist. This report was verified electronically.
[2016-10-02 14:00] VITALS: BP 113/69; PULSE 71; RESP 16; O2SAT 97
--- NOTE | 2016-10-02 14:38 | RADRPT ---
EXAM DATE/TIME: 10/02/2016 09:26 [facility] COMPARISON: No previous studies available for comparison. INDICATIONS : Spinal stenosis. RADIATION DOSE: 35.85 CTDIvol (mGy) CT of the thoracic spine was performed post myelogram. MEDICAL HISTORY : Hypertension. SURGICAL HISTORY : Spinal surgery ENCOUNTER: Initial ACUITY: 1 day PAIN SCALE: 0/10 LOCATION: Back TECHNIQUE: Volumetric scanning of the thoracic spine was performed. Multiplanar reconstructions in the sagittal , coronal and oblique axial planes were performed. Using automated exposure control and adjustment o f the mA and/or kV according to patient size, radiation dose was kept as low as reasonably achievable to obtain optimal diagnostic quality images. FINDINGS: Sagittal and coronal reconstruction show mild exaggerated kyphotic curvature of the dorsal spine with multilevel degenerative disc disease as evident by marginal spurring throughout the mid dorsal level s. Vertebral body heights are maintained without fracture. There is some impingement on the anterio r aspect of the thecal sac at both T5-6 and T12-L1 but I do not see significant spinal stenosis. Det lisa axial images as follows: T1-T2: Normal. T2-T3: The thecal sac has a normal diameter. No evidence of disc bulge or protrusion. T3-T4: The thecal sac has a normal diameter. No evidence of disc bulge or protrusion. T4-T5: The thecal sac has a normal diameter. No evidence of disc bulge or protrusion. T5-T6: Small left posterior disc protrusion. This deforms the thecal sac but there is no [id number] spina l stenosis. T6-T7: The thecal sac has a normal diameter. No evidence of disc bulge or protrusion. T7-T8: The thecal sac has a normal diameter. No evidence of disc bulge or protrusion. T8-T9: The thecal sac has a normal diameter. No evidence of disc bulge or protrusion. T9-T10: The thecal sac has a normal diameter. No evidence of disc bulge or protrusion. T10-T11: The thecal sac has a normal diameter. No evidence of disc bulge or protrusion. T11-T12: The thecal sac has a normal diameter. No evidence of disc bulge or protrusion. T12-L1: Broad based disc bulge slightly more prominent leftward impinges on the anterior aspect of the thecal sac with no significant spinal stenosis. CONCLUSION: 1. Mild exaggerated kyphotic curvature with multilevel degenerative disc disease as evident by gogo nal spurring predominantly mid dorsal levels. 2. Small left posterior disc at T5-6 and a broad based disc bulge slightly more prominent leftward a t T12-L1. Both of these encroach on the epidural space and deform the thecal sac but do not result i n significant spinal stenosis. The spinal canal is adequate throughout. 3. No acute fracture. Rajesh Díaz MD on October 02, 2016 at 14:24 Board Certified Radiologist. This report was verified electronically.
[2016-10-02] MEDS ORDERED: REMOVE OLD NICODERM (NICOTINE) PATCH T-DERMAL SCH (21:00)
--- NOTE | 2016-10-03 09:36 | RADRPT ---
EXAM DATE/TIME: 10/02/2016 09:26 [facility] COMPARISON: No previous studies available for comparison. INDICATIONS : Spinal stenosis. RADIATION DOSE: 35.85 CTDIvol (mGy) ; Combined studies - Thoracic Spine/Lumbar Spine CT of the lumbar spine was performed post myelogram. MEDICAL HISTORY : Hypertension. SURGICAL HISTORY : Spine surgery. ENCOUNTER: Initial ACUITY: 1 day PAIN SCALE: 0/10 LOCATION: Back TECHNIQUE: Volumetric scanning of the lumbar spine was performed. Multiplanar reconstructions in the sagittal, coronal and oblique axial planes were performed. Using automated exposure control and adjustment of the mA and/or kV according to patient size, radiation dose was kept as low as reasonably achievable t o obtain optimal diagnostic quality images. FINDINGS: The sagittal and coronal reconstructions show prior decompressive laminectomy at L4 and L5. However, there is a significant spinal stenosis at L3-4 and severe spinal stenosis posterior to the L4 verteb ral body just above the level of the decompressive laminectomy. Mild impression on the anterior aspe ct of the thecal sac at L2-3 and at the thoracolumbar junction, T12-L1. Vertebral body heights are m aintained without fracture. Detailed axial images as follows: T12-L1: Broad based disc bulge encroaching on the anterior epidural space and deforms the thecal sac but ther e is no spinal stenosis. Both neural foramina are adequate. L1-L2: The thecal sac has a normal diameter. No evidence of disc bulge or protrusion. The neural foramina are patent bilaterally. L2-L3: Diffuse disc bulge with impression on the anterior aspect of the thecal sac and mild spinal stenosis but no central nerve root compromise. Both neural foramina are adequate. L3-L4: Diffuse disc bulge with facet hypertrophy. There is severe central spinal stenosis which almost cert ainly compromises central nerve roots. L4-L5: Decompressive laminectomy at L4-5 however, just above the L4 laminectomy, there continues to be signi ficant spinal stenosis with no visualized contrast identified in the thecal sac. The sac opens up ag ain posterior to the L5 vertebral bodies. Left neural foramina is adequate but there is obliteration of the epidural fat around the right L4 nerve root. There is a diffuse disc bulge at this level. L5-S1: The spinal canal and neural foramina are adequate despite degenerative changes at the lumbosacral flores ction. CONCLUSION: 1. Severe spinal stenosis at L3-4 extending to the entire posterior aspect of the spinal canal at the L4 vertebral body. The thecal sac opens up again posterior to the L5 vertebral body. 2. Mild impression on the anterior aspect of the thecal sac about T12-L1 and L2-3 with no central spi nal stenosis or nerve root compromise. 3. Obliteration of the epidural fat around the right L4 nerve root which could compromise the right L 4 dermatome. The neural foramina appear to be adequate at all remaining levels. Rajesh Díaz MD on October 02, 2016 at 13:55 Board Certified Radiologist. This report was verified electronically.
[2016-10-18] MEDS ORDERED: HYDR-3583 PO (15:09)
[2016-11-11] MEDS ORDERED: HYDR-3583 PO (18:35)
== END 2016-10-02 14:10 | disposition home or self-care (01) ==
LOC: HROP 07:01 → HRIP 07:01 → HROP 14:10
PROVIDERS: ATTEND Neurological Surgery
DX: G89.29 Other chronic pain (principal); M48.06 Spinal stenosis, lumbar region; M48.02 Spinal stenosis, cervical region; I10 Essential (primary) hypertension
CPT/HCPCS: 62305; 72125; 72128; 72131; 80048; 85025; 85610; 85730; J7120; Q9967

== ENCOUNTER → 2017-07-07 | Outpatient (CLI) | payer MEDICAID ==
[~2017-07-07] MED LIST changes: -ALBUAER3; -BUPR150CR PO; +CLAR10CA3 PO; +CYCL10TA PO; -CYCL1TAB29 PO; +FAMO1TAB73 PO; -FLUT50SP; +HYDR2TAB PO; +MEDR4PAK PO; +MORP1CAP79 PO; -NICO14DI T-DERMAL; +ZOLO50TA PO
[2017-07-07 10:51] LABS: HEMATOCRIT 38.9 % (39.0-51.0); HEMOGLOBIN 13.3 GM/DL (13.0-17.0); MEAN CORPUSCULAR HEMOGLOBIN 32.9 PG (27.0-34.0); MEAN CORPUSCULAR HGB CONC 34.2 % (32.0-36.0); MEAN PLATELET VOLUME 7.1 FL (7.0-11.0); PLATELET COUNT 338 TH/MM3 (150-450); RED BLOOD COUNT 4.05 MIL/MM3 (4.50-5.90); RED CELL DISTRIBUTION WIDTH 13.8 % (11.6-17.2)
[2017-07-07 11:03] LABS: PROTHROMBIN TIME - PATIENT 9.9 SEC (9.8-11.6)
[2017-07-07 11:12] LABS: BICARBONATE 28.4 MEQ/L (21.0-32.0); CALCIUM 9.6 MG/DL (8.5-10.1); CREATININE 0.94 MG/DL (0.60-1.30)
--- NOTE | 2017-07-07 12:51 | RADRPT ---
EXAM DATE/TIME: 07/07/2017 12:11 [facility] COMPARISON: No previous studies available for comparison. INDICATIONS : Evaluate for pneumonia, pneumothorax or communicable disease. Pre op lumbar surgery. MEDICAL HISTORY : Hypertension. SURGICAL HISTORY : None. ENCOUNTER: Initial ACUITY: 1 day PAIN SCORE: 0/10 LOCATION: Bilateral chest FINDINGS: PA and lateral views of the chest demonstrate the lungs to be symmetrically aerated without evidence of mass, infiltrate or effusion. The cardiomediastinal contours are unremarkable. Osseous structure s are intact. CONCLUSION: No evidence of acute cardiopulmonary process. Justo Amador MD on July 07, 2017 at 12:48 Board Certified Radiologist. This report was verified electronically.
--- NOTE | 2017-07-08 22:55 | EKG ---
Date Performed: 07/07/2017 Time Performed: 10:59:37 PTAGE: 51 years EKG: Sinus rhythm NORMAL ECG NO PREVIOUS TRACING DOCTOR: Toya Eli Interpretating Date/Time 07/08/2017 22:53:03
== END ==
LOC: CPRE 10:17
PROVIDERS: ATTEND Neurological Surgery
DX: Z01.812 Encounter for preprocedural laboratory examination (principal); Z01.811 Encounter for preprocedural respiratory examination; Z01.810 Encounter for preprocedural cardiovascular examination; M48.061 Spinal stenosis, lumbar region without neurogenic claudication; M54.16 Radiculopathy, lumbar region; G89.29 Other chronic pain
CPT/HCPCS: 36415; 71046; 80048; 85027; 85610; 85730; 87640; 87641; 93005

== ENCOUNTER 2017-07-11 12:25 | Emergency (ER) | payer MEDICAID ==
[~2017-07-11] VITALS: Ht 177.8 cm; Wt 64.0 kg
[~2017-07-11 12:25] MED LIST changes: -CLAR10CA3 PO; -FAMO1TAB73 PO; -HYDR2TAB PO; -MEDR4PAK PO
[2017-07-11 12:32] VITALS: BP 117/65; PULSE 112; RESP 18; TEMP 98.1; O2SAT 97; O2SAT 99
--- NOTE | 2017-07-11 13:24 | PD ---
HPI Chief Complaint: Allergic/Adverse Reaction Time Seen by Provider: 13:21 Travel History International Travel<30 days: No Contact w/Intl Traveler<30days: No Traveled to known affect area: No History of Present Illness HPI c/o lip swelling (bottom), since this am. he called his pcp who recc to come to er, pcp changed lisinopril to ARB....patient denies any alleviating or aggravating factors....denies assoc factors like rash, dizziness, fever, n/v/d/ , acosta/cp/backpain/SOB/difficulty breathing or swallowing dr miranda all: pcn pmhx/pshx: migraine, htn, spinal stenosis PFSH Past Medical History Hx Anticoagulant Therapy: No Cancer: No Cardiovascular Problems: No Chemotherapy: No Cerebrovascular Accident: No Diabetes: No Endocrine: No Genitourinary: No Hepatitis: No Hiatal Hernia: No Immune Disorder: No Musculoskeletal: No Neurologic: Yes (spinal stenosis) Psychiatric: Yes Reproductive: No Respiratory: No Migraines: Yes Thyroid Disease: No Past Surgical History Abdominal Surgery: No AICD: No Body Medical Devices: plates in neck Cardiac Surgery: No Ear Surgery: No Endocrine Surgery: No Eye Surgery: No Genitourinary Surgery: No Gynecologic Surgery: No Oral Surgery: No Pacemaker: No Thoracic Surgery: No Social History Tobacco Use: No Substance Use: No Allergies-Medications (Allergen,Severity, Reaction): Coded Allergies: penicillin G (Verified Allergy, Mild, HIVES , 07/07/17) lisinopril (Verified Adverse Reaction, Severe, angiodedma, 07/11/17) Reported Meds & Prescriptions Reported Meds & Active Scripts Active Flexeril (Cyclobenzaprine HCl) 10 Mg Tab 10 Mg PO TID Reported Zoloft (Sertraline HCl) 50 Mg Tab 50 Mg PO HS Hydrocodone-Acetamin 10-325 mg (Hydrocodone/Acetaminophen) 10 Mg-325 Mg Tablet 1 Tab PO Q6HR PRN Embeda (Morphine-Naltrexone ER) 20-0.8 Mg Caper 1 Cap PO HS Gabapentin 400 Mg Cap 400 Cap PO TID Review of Systems General / Constitutional: No: Fever Eyes: No: Visual changes HENT: Positive: Other (facial swelling) Cardiovascular: No: Chest Pain or Discomfort Respiratory: No: Shortness of Breath Gastrointestinal: No: Abdominal Pain Genitourinary: No: Dysuria Musculoskeletal: No: Pain Skin: No Rash Neurologic: No: Weakness Psychiatric: No: Depression Endocrine: No: Polydipsia Hematologic/Lymphatic: No: Easy Bruising Physical Exam Narrative GENERAL: SKIN: Warm and dry. HEAD: Atraumatic. Normocephalic. EYES: Pupils equal and round. No scleral icterus. No injection or drainage. ENT: No nasal bleeding or discharge. Mucous membranes pink and moist.no uvular edema...however inferior lip edema noted NECK: Trachea midline. No JVD. CARDIOVASCULAR: Regular rate and rhythm. RESPIRATORY: No accessory muscle use. Clear to auscultation. Breath sounds equal bilaterally. no stridor, no wheezing GASTROINTESTINAL: Abdomen soft, non-tender, nondistended. MUSCULOSKELETAL: Extremities without clubbing, cyanosis, or edema. No obvious deformities. NEUROLOGICAL: Awake and alert. No obvious cranial nerve deficits. Motor grossly within normal limits. Five out of 5 muscle strength in the arms and legs. Normal speech. PSYCHIATRIC: Appropriate mood and affect; insight and judgment normal. Data Data Last Documented VS Vital Signs Date Time Temp Pulse Resp B/P (MAP) Pulse Ox O2 Delivery O2 Flow Rate FiO2 07/11/17 13:46 75 07/11/17 12:32 98.1 18 117/65 (82) 97 Orders Orders Ecg Monitoring (07/11/17 13:32) Iv Access Insert/Monitor (07/11/17 13:32) Oximetry (07/11/17 13:32) Diphenhydramine Inj (Benadryl Inj) (07/11/17 13:45) Methylprednisolone So Succ Inj (Solumedr (07/11/17 13:45) Famotidine Inj (Pepcid Inj) (07/11/17 13:45) Sodium Chloride 0.9% Flush (Ns Flush) (07/11/17 13:45) Epinephrine (1:1000) Inj (Adrenalin (1:1 (07/11/17 13:45) Ed Discharge Order (07/11/17 14:29) MDM Medical Decision Making Medical Screen Exam Complete: Yes Emergency Medical Condition: Yes Medical Record Reviewed: Yes Differential Diagnosis angioedema v allergic reaction v Narrative Course BASED ON EXAM FINDINGS C/W ANGIOEDEMA, ADVISED TO D/C LISINOPRIL, AT WHICH TIME PATIENT STATED THAT HIS PCP REPLACED MEDS WITH ANOTHER BP MED. Diagnosis Primary Impression: Angioedema due to angiotensin converting enzyme inhibitor (DAVID-I) Patient Instructions: Angioedema (ED), General Instructions Scripts Famotidine (Pepcid) 40 Mg Tab 40 MG PO HS, #7 TAB 0 Refills Prov: Earnest Rodriguez MD 07/11/17 Loratadine (Claritin) 10 Mg Cap 10 MG PO DAILY for Allergy Management for 7 Days, #7 CAP 0 Refills Prov: Earnest Rodriguez MD 07/11/17 Methylprednisolone Dosepak (Medrol Dosepak) 4 Mg Dspk 4 MG PO DIRECTED, #1 DSPK 0 Refills Per Pharmacist direction Prov: Earnest Rodriguez MD 07/11/17 Disposition: 01 DISCHARGE HOME Condition: Stable Earnest Rodriguez MD Jul 11, 2017 13:24
[2017-07-11] MEDS ORDERED: FAMOTIDINE 20 MG/2 ML VIAL IV PUSH ONE (13:45)
[2017-07-11] MEDS ORDERED: diphenhydrAMINE HCL 50 MG/ML VIAL IVP ONE (13:45)
[2017-07-11] MEDS ORDERED: EPINEPHrine HCL (1:1000) 1 MG/ML VIAL IM ONE (13:45)
[2017-07-11] MEDS ORDERED: SODIUM CHLORIDE 0.9% FLUSH 10 ML FLUSH IV FLUSH PRN (13:45)
[2017-07-11] MEDS ORDERED: methylPREDNISolone SOD SUCC 125 MG/2 ML VIAL IV PUSH ONE (13:45)
[2017-07-11 13:46] VITALS: PULSE 75
[2017-07-11] MEDS ORDERED: CLAR10CA3 PO (14:32)
[2017-07-11] MEDS ORDERED: FAMO1TAB73 PO (14:32)
[2017-07-11] MEDS ORDERED: MEDR4PAK PO (14:32)
[2017-07-14] MEDS ORDERED: HYDR2TAB PO (12:34)
== END 2017-07-11 16:40 | disposition home or self-care (01) ==
LOC: NEPD 12:25
DX: T78.3XXA Angioneurotic edema, initial encounter (principal); T46.4X5A Adverse effect of angiotensin-converting-enzyme inhibitors, initial encounter; I10 Essential (primary) hypertension; M48.00 Spinal stenosis, site unspecified; Z88.0 Allergy status to penicillin; Z88.8 Allergy status to other drugs, medicaments and biological substances; Z79.899 Other long term (current) drug therapy
CPT/HCPCS: 96372; 96374; 96375; 99284; J0171; J1200; J2930

== ENCOUNTER → 2017-07-14 | Day surgery (SDC) | payer MEDICAID ==
[~2017-07-14] VITALS: Ht 177.8 cm; Wt 65.8 kg
[~2017-07-14] MED LIST changes: +ACETAMINOPHEN 1000 MG/100 ML 100 ML IV ONE; +BUPIVACAINE HCL PF 0.25% 30 ML VIAL ONE; +BUPIVACAINE LIPOSOME PF 1.3% 20 ML VIAL INFIL ONE; +BUPIVACAINE LIPOSOME PF 1.3% 20 ML VIAL ONE; +CHLORHEXIDINE GLUCONATE 2 % 1 PACK (2 CLOTHS) TOPICAL PRN; +CLAR10CA3 PO; +CLINDAMYCIN 600 MG/NS PREMIX 50 ML IV PRN; +CLINDAMYCIN PHOS 600 MG/4 ML VIAL ONE; +DEXAMETHASONE SOD PHOS 4 MG/ML VIAL IV ONE; +DO NOT ADM ANY ANTICOAGULANT DRUGS PRN; +FAMO1TAB73 PO; +GELFOAM SIZE 100 ONE; +GENTAMICIN SULFATE 80 MG/2 ML VIAL ONE; +GLYCOPYRROLATE 1 MG/5 ML SYRINGE IV PUSH ONE; +HYDR2TAB PO; +KETOROLAC TROMETHAMINE 30 MG/ML (IVP) VIAL IV PUSH ONE; +LACTATED RINGER'S 1000 ML INJ 1,000 ML IV ONE; +LACTATED RINGER'S 1000 ML INJ 1,000 ML IV SCH; +LACTATED RINGER'S 1000 ML IV PRN; +LIDOCAINE 1%/EPINEPHrine 1:100,000 SOLN 30 ML VIAL ONE; +LIDOCAINE HCL 1% PF 5 ML SYRINGE OTHER ONE; -LISI10TA3 PO; +MEDR4PAK PO; +METOPROLOL TARTRATE 25 MG TAB PO PRN; +MIDAZOLAM HCL 2 MG/2 ML VIAL ONE; +MORPHINE SULFATE 4 MG/ML INJ ONE; +NEOSTIGMINE 5 MG/5 ML SYRINGE IV PUSH ONE; +ONDANSETRON HCL 4 MG/2 ML VIAL IV ONE; +PHENYLEPH/NS 1000 MCG/10 ML SYR IV ONE; +PHENYLEPHRINE HCL 10 MG/ML VIAL IV ONE; +POVIDONE IODINE 5% (ANTISEPSIS KIT) 4 APPLICATIONS EACH NARE PRN; +PROPOFOL 200 MG/20 ML AMP IV ONE; +ROCURONIUM INJ 50 MG/5 ML SYRINGE IV PUSH ONE; +SODIUM CHLORID 0.9% 500 ML IV PRN; +THROMBIN (TOPICAL) 5,000 UNIT VIAL ONE; +ePHEDrine/NS 25 MG/5 ML SYRINGE IV ONE
--- NOTE | 2017-07-14 12:52 | PD.OP ---
Operative Report Date of Surgery: Jul 14, 2017 Preoperative Diagnosis: (1) Lumbar radiculopathy (2) Lumbar spinal stenosis 1. L3 4 greater than L4 5 canal stenosis 2. Right L4-5 radiculopathy 3. Right L4 pars defect with grade 1 spondylolisthesis 4. L4 5 disc herniation Postoperative Diagnosis: (1) Lumbar radiculopathy (2) Lumbar spinal stenosis 1. L3 4 greater than L4 5 canal stenosis 2. Right L4-5 radiculopathy 3. Right L4 pars defect with grade 1 spondylolisthesis 4. L4 5 disc herniation 5. Severe L3-4-5 level epidural adhesions-scar tissue formation Procedure: 1. Bilateral L3-L4 decompressive semi-hemilaminectomy and medial facetectomy, lysis of adhesions 2. Right L3 4 discectomy Anesthesia: Gen. endotracheal Surgeon: Tremaine Ugarte Real Estate Developer(s): Charlee Moon Operation and Findings: Findings: Fractured superior medial right L4 facet with impingement on the exiting right L4 nerve roots. Significant instability of residual central to right L4 lamina and fractured facet with impingement on the dorsal thecal sac at the L4 level. Extensive adhesions and scar tissue formation along the thecal sac at the L3-L4 level. Moderate subannular disc herniation at the right L3-4 level with significant impingement on the exiting L4 nerve root. Procedure in detail: The patient was brought into the operating room and general endotracheal anesthesia induced without difficulty. RALPH hose and sequential compression devices were placed. Lines were established by anesthesia. The patient was positioned on the concentric Imer table with the side bolsters and all extremities appropriately padded. Appropriate time-out procedure was performed with all personnel present and in agreement. 1% Xylocaine with epinephrine was used for local infiltration over the incision site which was made just to the right of midline at the L3-L4 level. The incision was carried sharply down to the lumbodorsal fascia which was incised adjacent to the spinous processes. Avalos elevator was used for subperiosteal elevation of paraspinous musculature and fascia away from the lamina and spinous process. The deep self-retaining retractor was placed. The appropriate levels were verified with intraoperative C-arm. Microscope was moved into place and used for the remainder of the procedure including the closure. At the right L3-L4 level starting on the right side and then working across the midline to the opposite side, the TPS drill with a 5 mm bone bur followed by the 4 mm amaya bur was used to remove the inferior two thirds of the right L3 lamina and the residual right L4 lamina along with a moderate amount of the bilateral medial facet, taking care not to disrupt the integrity of the facet or pars intra-articularis at the right L3 level. There was no existing fracture of the pars intra-articularis at the right L4 level. There was extensive scar tissue and adhesions along the dorsal lateral thecal sac at the right greater than left L3-4 level extending down to the level of the L4 5 disc space. Much of the ligamentum flavum even at the L3-4 level was missing and the residual ligament was adherent to the thecal sac. The residual hypertrophied ligamentum flavum at each level was elevated away from the thecal sac and adhesions released as much as possible with the thin ligament dissector and Rhoton dissectors and microscissors, and resected with the 15 blade knife and the Kerrison rongeur out to the level of the deep lateral recess to completely decompress the thecal sac and exiting nerve roots. Loose fragments of bone from the fractured right L4 facet and destabilized residual lamina were lifted away from the thecal sac down to the level of the L4 5 disc space and resected with the Kerrison rongeur. The right L3-4 disc and annulus were inspected and were markedly impinging on the exiting right L3 nerve root and thecal sac, with a significant subannular disc herniation. The annulus was lifted away from the posterior vertebral body at the L4 level. It was elected to proceed with discectomy due to the amount of nerve compression from the disc herniation. The annulus was coagulated with the bipolar forceps. A small incision was made in the annulus with the 11 blade knife and discectomy performed with the micropituitary forceps. Any soft pieces of disc material in the paravertebral disc space were carefully removed with the biopsy forceps. The thin ligament dissector and reverse micro- curet were used to push down any fragments of herniated disc material along the epidural space away from the thecal sac and nerve root where they were further removed with the pituitary biopsy forceps. The exiting right L4 and L5 nerve roots were followed to the level of the medial pedicle to ensure that they were well decompressed. The nerve roots appeared well decompressed at the end of the procedure. No spinal fluid leakage was encountered. The disc and annulus at each level was visualized to make sure that there was no significant disc displacement or herniation. Bleeding was carefully controlled with the bipolar forceps. The closure was performed with 0 Vicryl interrupted for the deep and superficial fascia, with 3-0 Vicryl interrupted subcutaneous closure, and 4-0 Vicryl running subcuticular closure. A dressing of sterile Mastisol, Steri- Strips, and Primapore was placed. The patient was taken to recovery room in stable condition. All counts were correct at the end of the case. Estimated blood loss was 50 cc. No specimen was sent to pathology Tremaine Ugarte MD Jul 14, 2017 12:52
[2017-07-14 14:31] VITALS: BP 127/77; PULSE 73; RESP 18; TEMP 97.4; O2SAT 98
--- NOTE | 2017-07-14 14:40 | RADRPT ---
EXAM DATE/TIME: 07/14/2017 09:45 [facility] COMPARISON: No previous studies available for comparison. INDICATIONS : L3-4 laminectomy level localization. MEDICAL HISTORY : None. SURGICAL HISTORY : None. ENCOUNTER: Initial ACUITY: 1 day PAIN SCORE: Non-responsive. LOCATION: L-spine FINDINGS: 2 magnified C. arm spot views or lateral projections of the lumbar spine. Dorsal skin retractors with metallic probes observed. A metallic probe projects towards the pedicles of the L4 vertebral body. CONCLUSION: Limited images as detailed above. Juan Miguel Hearn Jr., MD on July 14, 2017 at 14:38 Board Certified Radiologist. This report was verified electronically.
== END | disposition home or self-care (01) ==
LOC: HSDC 06:15
PROVIDERS: ATTEND Neurological Surgery
DX: M51.16 Intervertebral disc disorders with radiculopathy, lumbar region (principal); M48.061 Spinal stenosis, lumbar region without neurogenic claudication; M43.16 Spondylolisthesis, lumbar region; I10 Essential (primary) hypertension
CPT/HCPCS: 00630; 63030; 72020; 76000; C9290; J0131; J1100; J1580; J1885; J2250; J2270; J2370; J2405; J2710; J3010; J7120